=== PATIENT | male | born 1980 | race Two or more races ===

== ENCOUNTER 2021-03-02 18:50 | Emergency (ER) | payer MEDICAID ==
[~2021-03-02] VITALS: Ht 190.5 cm; Wt 100.0 kg
[2021-03-02 18:53] VITALS: BP 153/89
[2021-03-02 19:35] LABS: COLOR,URINE YELLOW (Yellow); UA COLLECTION TYPE STRAIGHT CATH
[2021-03-02 19:36] LABS: CLARITY,URINE CLEAR (Clear); GLUCOSE, URINE NEGATIVE (Neg); KETONES,URINE NEGATIVE (Neg); LEUKOCYTE ESTERASE ,URINE NEGATIVE (Neg); NITRITES, URINE NEGATIVE (Neg); OCCULT BLOOD,URINE NEGATIVE (Neg); PH,URINE 5.5 (4.8-8.0); PROTEIN,URINE NEGATIVE (Neg); UROBILINOGEN,URINE 0.2 E.U/dL (0.2-1.0)
[2021-03-02] MEDS ORDERED: penicillin G benzathine 1.2 million unit/2ml syringe IM ONE (21:10)
[2021-03-02] MEDS ORDERED: azithromycin 250mg tablet PO ONE (21:10)
[2021-03-02] MEDS ORDERED: CefTRIAXone 250MG IM Kit w/LIDOcaine IM ONE (21:15)
[2021-03-02] MEDS ORDERED: PENICILLIN G BENZATHINE 2,400,000 UNIT/4 ML SYRINGE IM ONE (21:35)
== END 2021-03-02 22:10 | disposition home or self-care (01) ==
LOC: ER 18:51
DX: A64 Unspecified sexually transmitted disease (principal); N48.89 Other specified disorders of penis; F12.90 Cannabis use, unspecified, uncomplicated; Z20.2 Contact with and (suspected) exposure to infections with a predominantly sexual mode of transmission; Z87.81 Personal history of (healed) traumatic fracture; Z72.89 Other problems related to lifestyle
CPT/HCPCS: 36415; 81003; 87491; 87591; 96372; 99284; J0561; J0696

== ENCOUNTER 2022-05-10 14:10 | Emergency (ER) | payer MEDICAID ==
[~2022-05-10] VITALS: Ht 190.5 cm; Wt 102.3 kg
[~2022-05-10 14:10] MED LIST: APIX5TAB3 PO
[2022-05-10 15:13] VITALS: BP 129/90
[2022-05-10 16:01] LABS: BASOPHILS % (AUTO) 0.4 % (0-1); EOSINOPHILS # (AUTO) 0.1 X10'3 (0-0.9); EOSINOPHILS % (AUTO) 2.3 % (0-6); HEMATOCRIT 45.5 % (42.0-52.0); HEMOGLOBIN 15.9 g/dl (14.0-17.9); LYMPHOCYTES # (AUTO) 1.5 X10'3 (1.1-4.8); LYMPHOCYTES % (AUTO) 31.5 % (21-51); MEAN CORPUSCULAR HGB CONC 34.9 g/dL (33.0-36.5); MEAN CORPUSCULAR VOLUME 91.7 FL (78-98); MEAN PLATELET VOLUME 7.5 FL (7.4-10.4); MONOCYTES # (AUTO) 0.5 X10'3 (0-0.9); MONOCYTES % (AUTO) 9.7 % (2-12); NEUTROPHILS # (AUTO) 2.7 X10'3 (1.8-7.7); NEUTROPHILS % (AUTO) 56.1 % (42-75); PLATELET COUNT 186 X10'3 (140-440); RED BLOOD COUNT 4.96 X10'6 (4.70-6.10); RED CELL DISTRIBUTION WIDTH 12.8 % (11.5-14.5); WHITE BLOOD COUNT 4.8 X10'3 (4.5-11.0)
[2022-05-10 16:16] LABS: D-DIMER 0.21 MG/L FEU (0-0.50)
[2022-05-10 16:20] LABS: ALANINE AMINOTRANSFERASE 29 U/L (12-78); ALBUMIN 3.9 G/DL (3.4-5.0); ALBUMIN/GLOBULIN RATIO 1.2 (1.1-1.5); ALKALINE PHOSPHATASE 72 IU/L (46-116); ANION GAP 6 (8-16); ASPARTATE AMINO TRANSFERASE 16 U/L (10-37); BILIRUBIN,TOTAL 0.6 MG/DL (0.1-1.0); BLOOD UREA NITROGEN 16 MG/DL (7-18); BUN/CREATININE RATIO 14.3 (5.4-32.0); CALCIUM 8.8 MG/DL (8.5-10.1); CHLORIDE 104 MMOL/L (99-107); CREATININE 1.12 MG/DL (0.60-1.10); GLUCOSE 104 MG/DL (70-104); POTASSIUM 4.1 MMOL/L (3.5-5.1); SODIUM 140 MMOL/L (135-145); TOTAL PROTEIN 7.2 G/DL (6.4-8.2); eGFR 73 ML/MIN
== END 2022-05-10 21:55 | disposition home or self-care (01) ==
LOC: ER 14:10
DX: R07.89 Other chest pain (principal); Z86.711 Personal history of pulmonary embolism; Z98.890 Other specified postprocedural states; F12.90 Cannabis use, unspecified, uncomplicated; Z91.018 Allergy to other foods
CPT/HCPCS: 36415; 71046; 80053; 83880; 85025; 85379; 99284

== ENCOUNTER 2024-03-23 20:25 | Emergency (ER) | payer MEDICAID ==
[~2024-03-23] VITALS: Ht 190.5 cm; Wt 100.0 kg
[2024-03-23] MEDS: fentaNYL/PF 50MCG/1 ML 2ML syringe ONE (20:43)
[2024-03-23] MEDS: LIDOcaine 1% 30ml preserv. free vial IJ ONE (21:12)
[2024-03-23] MEDS: BUPIVAcaine/PF 2.5 mg/ml (0.25%) 30ml vial IJ ONE (21:14)
[2024-03-23] MEDS: MIDAZolam 5mg/ml 2ml vial IV ONE (21:17)
[2024-03-23] MEDS: fentaNYL/PF 50MCG/1 ML 2ML syringe IV ONE (21:37)
[2024-03-23] MEDS: propofol 10mg/ml 20ml vial IV ONE (21:37)
[2024-03-23] MEDS: ketorolac trometh 15mg/ml vial 15 MG/ML ML IV ONE (21:38)
[2024-03-23] MEDS: normal saline 1000ml 1,000 ML IV ONE (21:49)
[2024-03-24 00:17] VITALS: BP 104/72; PULSE 67; RESP 10; TEMP 98.4; O2SAT 98
[2024-03-24] MEDS ORDERED: LIDO700A32 TD (14:05)
[2024-03-24] MEDS ORDERED: OXYC-658 PO (14:05)
[2024-03-25] MEDS ORDERED: HYDR-3973 PO (19:54)
== END 2024-03-24 00:23 | disposition home or self-care (01) ==
LOC: ER 20:26
DX: S43.085A Other dislocation of left shoulder joint, initial encounter (principal); F12.90 Cannabis use, unspecified, uncomplicated; Z91.048 Other nonmedicinal substance allergy status; Z79.899 Other long term (current) drug therapy; Z98.890 Other specified postprocedural states; Z72.89 Other problems related to lifestyle; Z86.711 Personal history of pulmonary embolism; W18.39XA Other fall on same level, initial encounter; Y93.89 Activity, other specified; Y92.89 Other specified places as the place of occurrence of the external cause; Y99.8 Other external cause status
CPT/HCPCS: 23650; 73020; 73030; 96361; 96374; 96375; 99285; J1885; J2250; J3010; J7030; A4565; A4615; A4620; J3490

== ENCOUNTER 2024-03-24 10:43 | Emergency (ER) | payer MEDICAID ==
[~2024-03-24] VITALS: Ht 190.5 cm; Wt 94.8 kg
[2024-03-24 10:45] VITALS: TEMP 98.2
[2024-03-24] MEDS: LIDOcaine 5% patch TP ONE (11:55)
[2024-03-24] MEDS: morphine 4 MG/ML inj SYRINge IV ONE (11:55)
[2024-03-24] MEDS ORDERED: LIDO700A32 TD (14:05)
[2024-03-24] MEDS ORDERED: OXYC-658 PO (14:05)
[2024-03-24] MEDS: ketorolac trometh 30MG/ML vial 30 MG/ML VIAL IV ONE (14:19)
[2024-03-24 14:30] VITALS: BP 123/84; PULSE 60; RESP 16; O2SAT 98
[2024-03-25] MEDS ORDERED: HYDR-3973 PO (19:54)
== END 2024-03-24 14:31 | disposition home or self-care (01) ==
LOC: ER 10:43
DX: M25.512 Pain in left shoulder (principal); M62.838 Other muscle spasm; F12.90 Cannabis use, unspecified, uncomplicated; Z88.8 Allergy status to other drugs, medicaments and biological substances; Z79.899 Other long term (current) drug therapy; Z98.890 Other specified postprocedural states; Z72.89 Other problems related to lifestyle; Z86.711 Personal history of pulmonary embolism
CPT/HCPCS: 96374; 96375; 99285; J1885; J2270

== ENCOUNTER 2024-03-25 13:40 | Emergency (ER) | payer MEDICAID ==
[~2024-03-25] VITALS: Ht 190.5 cm; Wt 95.2 kg
[~2024-03-25 13:40] MED LIST changes: +LIDO700A32 TD; +OXYC-658 PO
[2024-03-25 16:58] VITALS: TEMP 99.2
[2024-03-25] MEDS: HYDROcodone/acetaminophen 10/325mg tab PO ONE (18:23)
[2024-03-25] MEDS: ketorolac trometh 15mg/ml vial 15 MG/ML ML IM ONE (18:23)
[2024-03-25] MEDS ORDERED: HYDR-3973 PO (19:54)
[2024-03-25 20:00] VITALS: BP 128/89; PULSE 89; RESP 18; O2SAT 98
== END 2024-03-25 20:23 | disposition home or self-care (01) ==
LOC: ER 13:41
DX: S42.295A Other nondisplaced fracture of upper end of left humerus, initial encounter for closed fracture (principal); F12.90 Cannabis use, unspecified, uncomplicated; Z91.048 Other nonmedicinal substance allergy status; Z79.899 Other long term (current) drug therapy; Z72.89 Other problems related to lifestyle; Z86.711 Personal history of pulmonary embolism; Z98.890 Other specified postprocedural states; X58.XXXA Exposure to other specified factors, initial encounter; Y93.89 Activity, other specified; Y92.89 Other specified places as the place of occurrence of the external cause; Y99.8 Other external cause status
CPT/HCPCS: 73221; 96372; 99285; J1885